=== PATIENT | male | born 1980 | race Caucasian/White ===

== ENCOUNTER 2017-01-16 02:52 | Emergency (ER) | payer MEDICARE, MEDICAID ==
[~2017-01-16] VITALS: Ht 175.3 cm; Wt 59.0 kg
[~2017-01-16 02:52] MED LIST: ALPR0.5T PO; FENT100D2 TD; HYDR2TAB27 PO; METO25TA62 PO; PAR20T PO; RILU50TA2 PO
[2017-01-16] MEDS ORDERED: ALBUTEROL SULF 2.5 MG/0.5ML(0.5%) NEB SOLN NEB ONE (03:00)
[2017-01-16] MEDS ORDERED: IPRATROPIUM BROM 0.5 MG/2.5ML INH SOL NEB ONE (03:00)
[2017-01-16] MEDS ORDERED: methylPREDNISolone SOD SUCC 125 MG/2 ML VL IV ONE (03:00)
[2017-01-16 03:28] LABS: Basophils # (auto) 0.1 uL; Basophils % (auto) 0.9 % (0.0-2.0); DEFINITIVE VIEW TRANSMISSION; Eosinophils # (auto) 0.2 uL; Eosinophils % (auto) 2.5 % (0.0-7.0); Hematocrit 37.4 % (41.0-53.0); Lymphocytes # (auto) 1.5 uL; Lymphocytes % (auto) 14.6 % (10.0-50.0); Mean Corpuscular Hemoglobin 26.9 pg (28.0-32.0); Mean Corpuscular Hgb Conc. 32.1 g/dL (32.0-36.0); Mean Corpuscular Volume 83.6 fL (80.0-100.0); Mean Platelet Volume 9.2 fL (7.4-10.4); Monocytes # (auto) 0.7 uL; Monocytes % (auto) 7.3 % (0.0-12.0); Neutrophils # (auto) 7.5 uL; Neutrophils % (auto) 74.7 % (37.0-80.0); Platelet Count (auto) 396 10^3/uL (140-450); White Blood Cell 10.1 10^3/uL (4.4-10.8)
[2017-01-16 03:47] LABS: Albumin 3.2 g/dL (3.4-5.0); Anion Gap 9 (5-15); Aspartate Aminotransferase 16 U/L (15-37); BUN/Creatinine Ratio 59.3; Blood Urea Nitrogen 16 mg/dL (7-18); Calcium 8.7 mg/dL (8.5-10.1); Carbon Dioxide 28 mmol/L (21-32); Chloride 103 mmol/L (98-107); GFR African American 487 mL/min; GFR Non-African American 403 mL/min; Glucose 102 mg/dL (74-106); Magnesium 2.1 mg/dL (1.6-2.6); Sodium 140 mmol/L (136-145)
[2017-01-16 03:52] LABS: Alkaline Phosphatase 88 U/L (45-117); Bilirubin, Total 0.4 mg/dL (0.2-1.0); Total Protein 7.6 g/dL (6.4-8.2)
[2017-01-16 04:48] LABS: B-Type Natriuretic Peptide 5.48 pg/mL (0-100)
[2017-01-16 05:05] LABS: Temperature: 22.2 C (20.0-25.0)
[2017-01-16] MEDS ORDERED: PIPERACILLIN-TAZOB 3.375GM 100 ML IV ONE (06:15)
[2017-01-16 06:52] VITALS: BP 106/61
[2017-01-16] MEDS ORDERED: HYDROmorphone HCL 2 MG/ML VL IV ONE (07:45)
[2017-01-16] MEDS ORDERED: HYDROmorphone HCL 2 MG/ML VL ONE (07:50)
== END 2017-01-16 08:59 | disposition home or self-care (01) ==
LOC: ER 02:52
DX: J96.00 Acute respiratory failure, unspecified whether with hypoxia or hypercapnia (principal)
CPT/HCPCS: 36415; 36600; 71010; 80053; 82805; 83605; 83735; 83880; 84484; 85025; 87040; 87070; 87077; 87186; 87205; 93005; 94640; 96365; 96375; 99285; J1170; J2543; J2930; 94002; 94003

== ENCOUNTER 2017-01-20 22:37 | Inpatient (IN) | payer MEDICARE, MEDICAID ==
[~2017-01-20] VITALS: Ht 165.1 cm; Wt 97.5 kg
[~2017-01-20 22:37] MED LIST changes: +ALBUTEROL SULF 2.5 MG/0.5ML(0.5%) NEB SOLN ONE
[2017-01-20] MEDS ORDERED: methylPREDNISolone SOD SUCC 125 MG/2 ML VL IV ONE (22:45)
[2017-01-20] MEDS ORDERED: SODIUM CHLORIDE 0.9% 1,000 ML IV ONE (22:45)
[2017-01-20] MEDS ORDERED: PIPERACILLIN-TAZOB 3.375GM 100 ML IV ONE (22:45)
[2017-01-20] MEDS ORDERED: ALBUTEROL SULF 2.5 MG/0.5ML(0.5%) NEB SOLN NEB ONE (22:45)
[2017-01-20] MEDS ORDERED: ACETYLCYSTEINE 10 %(100MG/ML) SOL 4ML NEB ONE (22:45)
[2017-01-20] MEDS ORDERED: IPRATROPIUM BROM 0.5 MG/2.5ML INH SOL NEB ONE (22:45)
[2017-01-20] MEDS ORDERED: LEVOFLOXACIN 500MG 100 ML IV ONE (22:45)
[2017-01-20] MEDS ORDERED: ALPRAZolam 0.5 MG TAB PO ONE (23:45)
[2017-01-21] VITALS (16 sets, daily range): BP systolic 111–148; BP diastolic 17–95
[2017-01-21 00:15] LABS: B-Type Natriuretic Peptide 13.25 pg/mL (0-100)
[2017-01-21 00:16] LABS: DEFINITIVE VIEW TRANSMISSION; Hematocrit 40.8 % (41.0-53.0); Mean Corpuscular Hemoglobin 26.5 pg (28.0-32.0); Mean Corpuscular Hgb Conc. 31.9 g/dL (32.0-36.0); Mean Corpuscular Volume 83.2 fL (80.0-100.0); Mean Platelet Volume 10.2 fL (7.4-10.4); Platelet Count (auto) 416 10^3/uL (140-450); SUSPECT VIEW TRANSMISSION
[2017-01-21 00:18] LABS: White Blood Cell 35.5 10^3/uL (4.4-10.8)
[2017-01-21 00:20] LABS: Metamyelocytes % 0; Myelocytes % 0; Promyelocytes % 0; Reactive Lymphocytes 0; Temperature: 23.8 C (20.0-25.0)
[2017-01-21] MEDS ORDERED: SODIUM CHLORIDE 0.9% 1,000 ML IV ONE (00:30)
[2017-01-21 03:12] LABS: BUN/Creatinine Ratio 45.5; Bilirubin, Total 0.8 mg/dL (0.2-1.0); Calcium 9.1 mg/dL (8.5-10.1); Magnesium 1.9 mg/dL (1.6-2.6); Potassium 3.2 mmol/L (3.5-5.1); Total Protein 7.9 g/dL (6.4-8.2)
[2017-01-21 04:00] LABS: Hypersegmented Neutrophils Present
[2017-01-21 04:01] LABS: Platelet Estimate Adequate; RBC Morphology Normal
[2017-01-21 04:02] LABS: Urine Bilirubin Negative (Negative); Urine Blood Negative /uL (Negative); Urine Color Yellow (Yellow); Urine Glucose Normal (Normal); Urine Nitrite Negative (Negative); Urine RBC 4 /hpf (0 - 3); Urine Squamous Epithelial Cell FEW /hpf (<5); Urine Urobilinogen Normal (Negative)
[2017-01-21 04:04] LABS: Urine Ketone 4+ (Negative)
[2017-01-21] MEDS: ALBUTEROL SULF 2.5 MG/0.5ML(0.5%) NEB SOLN NEB SCH ×3 (05:40→18:15)
[2017-01-21] MEDS: IPRATROPIUM BROM 0.5 MG/2.5ML INH SOL NEB SCH ×3 (05:40→18:15)
[2017-01-21] MEDS: ACETYLCYSTEINE 20%(200MG/ML) SOL 4ML NEB SCH ×3 (05:40→18:16)
[2017-01-21] MEDS ORDERED: ACETAMINOPHEN 325 MG TAB PO PRN (05:45)
[2017-01-21] MEDS ORDERED: ONDANSETRON HCL 4 MG/2 ML VIAL IV PRN (05:45)
[2017-01-21] MEDS ORDERED: VANCOMYCIN PER PHARMACY 0 MG IV SCH (05:45)
[2017-01-21] MEDS ORDERED: MORPHINE SULF INJ 2 MG/ML SYRINGE 1ML IV PRN (05:45)
[2017-01-21] MEDS ORDERED: NITROGLYCERIN 0.4 MG SL TAB SL PRN (05:45)
[2017-01-21] MEDS ORDERED: VANCOMYCIN 1GM/250ML D5W 250 ML IV ONE (06:00)
[2017-01-21] MEDS ORDERED: PIPERACILLIN-TAZOB 3.375GM 100 ML IV SCH (06:00)
[2017-01-21] MEDS: POTASSIUM CHL 20MEQ/100ML 100 ML IV SCH ×2 (06:12→07:46)
[2017-01-21] MEDS: SODIUM CHLORIDE 0.9% 1,000 ML IV SCH ×2 (06:12→19:34)
[2017-01-21] MEDS: VANCOMYCIN 750 MG in D5W 5% 250 ML IV SCH ×2 (09:41→21:21)
[2017-01-21] MEDS ORDERED: methylPREDNISolone SOD SUCC 125 MG/2 ML VL IV SCH ×2 (10:00→22:00)
[2017-01-21] MEDS: PANTOPRAZOLE SODIUM 40 MG/10 ML VIAL IV SCH (10:20)
[2017-01-21] MEDS: ENOXAPARIN SOD 40 MG/0.4 ML SYRINGE SC SCH (10:21)
[2017-01-21] MEDS: MEROPENEM 1GM IVPB 100 ML IV SCH ×2 (14:45→22:00)
[2017-01-21] MEDS: MORPHINE SULF INJ 2 MG/ML SYRINGE 1ML IV PRN (21:20)
[2017-01-21] MEDS: methylPREDNISolone SOD SUCC 40 MG/ML VL IV SCH (21:21)
[2017-01-22] VITALS (9 sets, daily range): BP systolic 115–130; BP diastolic 73–85
[2017-01-22] MEDS: IPRATROPIUM BROM 0.5 MG/2.5ML INH SOL NEB SCH ×5 (02:10→23:36)
[2017-01-22] MEDS: ACETYLCYSTEINE 20%(200MG/ML) SOL 4ML NEB SCH ×5 (02:10→23:36)
[2017-01-22] MEDS: ALBUTEROL SULF 2.5 MG/0.5ML(0.5%) NEB SOLN NEB SCH ×5 (02:10→23:36)
[2017-01-22] MEDS: MEROPENEM 1GM IVPB 100 ML IV SCH ×3 (05:21→21:52)
[2017-01-22 06:43] LABS: DEFINITIVE VIEW TRANSMISSION; Hematocrit 33.3 % (41.0-53.0); Hemoglobin 10.8 g/dL (13.5-17.5); Mean Corpuscular Hemoglobin 26.8 pg (28.0-32.0); Mean Corpuscular Hgb Conc. 32.5 g/dL (32.0-36.0); Mean Corpuscular Volume 82.5 fL (80.0-100.0); Mean Platelet Volume 9.7 fL (7.4-10.4); Platelet Count (auto) 322 10^3/uL (140-450); Red Cell Distribution Width 15.6 % (11.6-16.0); SUSPECT VIEW TRANSMISSION; White Blood Cell 29.9 10^3/uL (4.4-10.8)
[2017-01-22 06:44] LABS: Albumin 2.6 g/dL (3.4-5.0); BUN/Creatinine Ratio 54.5; Calcium 9.2 mg/dL (8.5-10.1); Metamyelocytes % 0; Potassium 3.3 mmol/L (3.5-5.1); Promyelocytes % 0; Reactive Lymphocytes 0
[2017-01-22 06:46] LABS: Bilirubin, Total 0.3 mg/dL (0.2-1.0); Total Protein 6.7 g/dL (6.4-8.2)
[2017-01-22 06:50] LABS: Hypersegmented Neutrophils Present; Myelocytes % 1; Platelet Estimate Adequate
[2017-01-22 06:51] LABS: Anisocytosis Slight
[2017-01-22] MEDS: methylPREDNISolone SOD SUCC 40 MG/ML VL IV SCH ×2 (09:28→21:51)
[2017-01-22] MEDS: PANTOPRAZOLE SODIUM 40 MG/10 ML VIAL IV SCH (09:28)
[2017-01-22] MEDS: SODIUM CHLORIDE 0.9% 1,000 ML IV SCH ×2 (09:28→21:45)
[2017-01-22] MEDS: ENOXAPARIN SOD 40 MG/0.4 ML SYRINGE SC SCH (09:29)
[2017-01-22] MEDS: VANCOMYCIN 750 MG in D5W 5% 250 ML IV SCH ×2 (09:35→18:19)
[2017-01-22] MEDS ORDERED: POTASSIUM CHL 20 Meq TABLET PO ONE (14:30)
[2017-01-22] MEDS: MORPHINE SULF INJ 2 MG/ML SYRINGE 1ML IV PRN ×2 (14:38→20:03)
[2017-01-22] MEDS: RILUZOLE 50 MG TABLET PO SCH (21:51)
[2017-01-23] VITALS (11 sets, daily range): BP systolic 128–141; BP diastolic 55–88
[2017-01-23] MEDS: VANCOMYCIN 750 MG in D5W 5% 250 ML IV SCH ×3 (01:37→18:15)
[2017-01-23 04:36] LABS: DEFINITIVE VIEW TRANSMISSION; Hematocrit 33.9 % (41.0-53.0); Hemoglobin 11.1 g/dL (13.5-17.5); Mean Corpuscular Hemoglobin 26.9 pg (28.0-32.0); Mean Corpuscular Hgb Conc. 32.8 g/dL (32.0-36.0); Mean Platelet Volume 9.7 fL (7.4-10.4); Platelet Count (auto) 298 10^3/uL (140-450); Red Cell Distribution Width 15.5 % (11.6-16.0); SUSPECT VIEW TRANSMISSION; White Blood Cell 26.7 10^3/uL (4.4-10.8)
[2017-01-23 04:38] LABS: Metamyelocytes % 0; Myelocytes % 0; Promyelocytes % 0; Reactive Lymphocytes 0
[2017-01-23 04:56] LABS: BUN/Creatinine Ratio 82.6; Calcium 8.9 mg/dL (8.5-10.1); Potassium 4.2 mmol/L (3.5-5.1)
[2017-01-23 05:13] LABS: Hypersegmented Neutrophils Present; Platelet Estimate Adequate
[2017-01-23 05:14] LABS: Anisocytosis Slight
[2017-01-23] MEDS: MEROPENEM 1GM IVPB 100 ML IV SCH ×3 (05:36→22:00)
[2017-01-23] MEDS: ALBUTEROL SULF 2.5 MG/0.5ML(0.5%) NEB SOLN NEB SCH ×3 (06:01→20:56)
[2017-01-23] MEDS: IPRATROPIUM BROM 0.5 MG/2.5ML INH SOL NEB SCH ×3 (06:01→20:57)
[2017-01-23] MEDS: ACETYLCYSTEINE 20%(200MG/ML) SOL 4ML NEB SCH ×3 (06:02→20:57)
[2017-01-23] MEDS: methylPREDNISolone SOD SUCC 40 MG/ML VL IV SCH (09:51)
[2017-01-23] MEDS: ENOXAPARIN SOD 40 MG/0.4 ML SYRINGE SC SCH (09:51)
[2017-01-23] MEDS: PANTOPRAZOLE SODIUM 40 MG/10 ML VIAL IV SCH (09:51)
[2017-01-23] MEDS: SODIUM CHLORIDE 0.9% 1,000 ML IV SCH (09:52)
[2017-01-23] MEDS: RILUZOLE 50 MG TABLET PO SCH (10:00)
[2017-01-23] MEDS ORDERED: fentaNYL 100MCG/HR 100 MCG/HR PAT TD SCH (10:00)
[2017-01-23] MEDS: PARoxetine 20 MG TAB PO SCH (10:01)
[2017-01-23] MEDS: MORPHINE SULF INJ 2 MG/ML SYRINGE 1ML IV PRN ×3 (11:08→23:30)
[2017-01-23] MEDS ORDERED: DULoxetine HCL 30 MG CAP PO ONE (11:15)
[2017-01-23] MEDS ORDERED: LACTULOSE 20Gm/30ML SOLN PO ONE (11:15)
[2017-01-23] MEDS ORDERED: BISACODYL 5 MG EC TAB PO ONE (11:45)
[2017-01-23] MEDS ORDERED: DOCUSATE SOD 100 MG CAP PO ONE (12:00)
[2017-01-23] MEDS: RILUZOLE 50 MG TAB PO SCH (22:00)
[2017-01-23] MEDS ORDERED: TESTOSTERONE CYPIONATE 200 MG/ML 1ML VIAL IM ONE (22:45)
[2017-01-24] VITALS (9 sets, daily range): BP systolic 115–158; BP diastolic 60–89
[2017-01-24] MEDS: SODIUM CHLORIDE 0.9% 1,000 ML IV SCH ×2 (00:25→13:45)
[2017-01-24] MEDS: IPRATROPIUM BROM 0.5 MG/2.5ML INH SOL NEB SCH ×4 (01:51→18:25)
[2017-01-24] MEDS: ACETYLCYSTEINE 20%(200MG/ML) SOL 4ML NEB SCH ×8 (01:51→18:25)
[2017-01-24] MEDS: ALBUTEROL SULF 2.5 MG/0.5ML(0.5%) NEB SOLN NEB SCH ×4 (01:51→18:25)
[2017-01-24] MEDS: VANCOMYCIN 1GM/250ML D5W 250 ML IV SCH ×3 (02:30→18:23)
[2017-01-24] MEDS: MORPHINE SULF INJ 2 MG/ML SYRINGE 1ML IV PRN ×4 (05:27→19:37)
[2017-01-24] MEDS: MEROPENEM 1GM IVPB 100 ML IV SCH ×3 (06:16→22:03)
[2017-01-24 06:24] LABS: Basophils # (auto) 0 uL; DEFINITIVE VIEW TRANSMISSION; Eosinophils # (auto) 0 uL; Hematocrit 34.2 % (41.0-53.0); Hemoglobin 11.1 g/dL (13.5-17.5); Lymphocytes # (auto) 0.9 uL; Lymphocytes % (auto) 5.4 % (10.0-50.0); Mean Corpuscular Hemoglobin 26.6 pg (28.0-32.0); Mean Corpuscular Hgb Conc. 32.3 g/dL (32.0-36.0); Mean Corpuscular Volume 82.5 fL (80.0-100.0); Mean Platelet Volume 10.4 fL (7.4-10.4); Monocytes # (auto) 0.6 uL; Monocytes % (auto) 3.9 % (0.0-12.0); Neutrophils # (auto) 15.3 uL; Neutrophils % (auto) 90.7 % (37.0-80.0); Platelet Count (auto) 288 10^3/uL (140-450); Red Cell Distribution Width 15.6 % (11.6-16.0); White Blood Cell 16.8 10^3/uL (4.4-10.8)
[2017-01-24 06:41] LABS: Albumin 2.7 g/dL (3.4-5.0); Calcium 8.9 mg/dL (8.5-10.1); Potassium 4.3 mmol/L (3.5-5.1)
[2017-01-24 06:46] LABS: Bilirubin, Total 0.4 mg/dL (0.2-1.0); Total Protein 6.1 g/dL (6.4-8.2)
[2017-01-24] MEDS: PARoxetine 20 MG TAB PO SCH (09:56)
[2017-01-24] MEDS: PANTOPRAZOLE SODIUM 40 MG/10 ML VIAL IV SCH (09:56)
[2017-01-24] MEDS: RILUZOLE 50 MG TAB PO SCH ×2 (09:56→22:03)
[2017-01-24] MEDS: ENOXAPARIN SOD 40 MG/0.4 ML SYRINGE SC SCH (09:56)
[2017-01-24] MEDS: FLUCONAZOLE 100MG/50ML 50 ML IV SCH (14:18)
[2017-01-25] VITALS (7 sets, daily range): BP systolic 97–137; BP diastolic 59–78
[2017-01-25] MEDS: MORPHINE SULF INJ 2 MG/ML SYRINGE 1ML IV PRN ×3 (00:04→19:44)
[2017-01-25] MEDS: IPRATROPIUM BROM 0.5 MG/2.5ML INH SOL NEB SCH ×4 (00:14→18:22)
[2017-01-25] MEDS: ACETYLCYSTEINE 20%(200MG/ML) SOL 4ML NEB SCH ×7 (00:14→20:42)
[2017-01-25] MEDS: ALBUTEROL SULF 2.5 MG/0.5ML(0.5%) NEB SOLN NEB SCH ×4 (00:14→18:22)
[2017-01-25] MEDS: VANCOMYCIN 1GM/250ML D5W 250 ML IV SCH ×3 (01:47→20:00)
[2017-01-25] MEDS: SODIUM CHLORIDE 0.9% 1,000 ML IV SCH ×2 (04:00→16:25)
[2017-01-25] MEDS: MEROPENEM 1GM IVPB 100 ML IV SCH ×3 (05:41→22:00)
[2017-01-25 06:17] LABS: Basophils # (auto) 0 uL; Basophils % (auto) 0.2 % (0.0-2.0); DEFINITIVE VIEW TRANSMISSION; Eosinophils # (auto) 0.1 uL; Eosinophils % (auto) 1.1 % (0.0-7.0); Hematocrit 34.6 % (41.0-53.0); Hemoglobin 11.3 g/dL (13.5-17.5); Lymphocytes # (auto) 2.3 uL; Lymphocytes % (auto) 20.5 % (10.0-50.0); Mean Corpuscular Hemoglobin 26.7 pg (28.0-32.0); Mean Corpuscular Hgb Conc. 32.5 g/dL (32.0-36.0); Mean Platelet Volume 9.7 fL (7.4-10.4); Monocytes # (auto) 0.9 uL; Monocytes % (auto) 7.8 % (0.0-12.0); Neutrophils # (auto) 7.9 uL; Neutrophils % (auto) 70.4 % (37.0-80.0); Platelet Count (auto) 303 10^3/uL (140-450); Red Cell Distribution Width 15.6 % (11.6-16.0); White Blood Cell 11.2 10^3/uL (4.4-10.8)
[2017-01-25 06:42] LABS: Calcium 8.5 mg/dL (8.5-10.1); Potassium 3.8 mmol/L (3.5-5.1)
[2017-01-25] MEDS: PARoxetine 20 MG TAB PO SCH (10:00)
[2017-01-25] MEDS: PANTOPRAZOLE SODIUM 40 MG/10 ML VIAL IV SCH (10:00)
[2017-01-25] MEDS: RILUZOLE 50 MG TAB PO SCH ×2 (10:00→22:00)
[2017-01-25] MEDS: ENOXAPARIN SOD 40 MG/0.4 ML SYRINGE SC SCH (10:00)
[2017-01-25] MEDS: FLUCONAZOLE 100MG/50ML 50 ML IV SCH (10:00)
[2017-01-26] VITALS: BP 132/73
[2017-01-26] MEDS: ALBUTEROL SULF 2.5 MG/0.5ML(0.5%) NEB SOLN NEB SCH ×4 (00:32→18:25)
[2017-01-26] MEDS: IPRATROPIUM BROM 0.5 MG/2.5ML INH SOL NEB SCH ×4 (00:32→18:25)
[2017-01-26 04:00] VITALS: BP 117/74
[2017-01-26] MEDS: VANCOMYCIN 1GM/250ML D5W 250 ML IV SCH ×3 (04:00→19:56)
[2017-01-26] MEDS: MORPHINE SULF INJ 2 MG/ML SYRINGE 1ML IV PRN ×5 (05:01→22:33)
[2017-01-26] MEDS: SODIUM CHLORIDE 0.9% 1,000 ML IV SCH ×2 (05:45→19:55)
[2017-01-26] MEDS: ACETYLCYSTEINE 20%(200MG/ML) SOL 4ML NEB SCH ×4 (06:15→18:25)
[2017-01-26] MEDS: MEROPENEM 1GM IVPB 100 ML IV SCH ×3 (06:30→21:31)
[2017-01-26 08:00] VITALS: BP 118/69
[2017-01-26] MEDS: PANTOPRAZOLE SODIUM 40 MG/10 ML VIAL IV SCH (09:59)
[2017-01-26] MEDS: ENOXAPARIN SOD 40 MG/0.4 ML SYRINGE SC SCH (10:00)
[2017-01-26] MEDS: PARoxetine 20 MG TAB PO SCH (10:00)
[2017-01-26] MEDS ORDERED: TERBUTALINE SULFATE 5 MG TAB PO ONE (10:00)
[2017-01-26] MEDS: FLUCONAZOLE 100MG/50ML 50 ML IV SCH (10:19)
[2017-01-26] MEDS: RILUZOLE 50 MG TAB PO SCH ×2 (10:19→21:32)
[2017-01-26 12:00] VITALS: BP 125/80
[2017-01-26 15:34] LABS: Basophils # (auto) 0 uL; Basophils % (auto) 0.2 % (0.0-2.0); DEFINITIVE VIEW TRANSMISSION; Eosinophils # (auto) 0.3 uL; Eosinophils % (auto) 1.8 % (0.0-7.0); Hematocrit 40.3 % (41.0-53.0); Hemoglobin 13.3 g/dL (13.5-17.5); Lymphocytes # (auto) 2.3 uL; Lymphocytes % (auto) 13.3 % (10.0-50.0); Mean Corpuscular Hemoglobin 26.9 pg (28.0-32.0); Mean Corpuscular Hgb Conc. 32.9 g/dL (32.0-36.0); Mean Corpuscular Volume 81.6 fL (80.0-100.0); Mean Platelet Volume 9.7 fL (7.4-10.4); Monocytes # (auto) 1.1 uL; Monocytes % (auto) 6.1 % (0.0-12.0); Neutrophils # (auto) 13.6 uL; Neutrophils % (auto) 78.6 % (37.0-80.0); Platelet Count (auto) 298 10^3/uL (140-450); Red Cell Distribution Width 15.5 % (11.6-16.0); White Blood Cell 17.3 10^3/uL (4.4-10.8)
[2017-01-26 16:00] VITALS: BP 153/65
[2017-01-26 20:00] VITALS: BP 113/65
[2017-01-26] MEDS: TERBUTALINE SULFATE 5 MG TAB PO SCH (21:32)
[2017-01-27] VITALS: BP 104/62
[2017-01-27] MEDS: ALBUTEROL SULF 2.5 MG/0.5ML(0.5%) NEB SOLN NEB SCH ×4 (00:34→18:15)
[2017-01-27] MEDS: IPRATROPIUM BROM 0.5 MG/2.5ML INH SOL NEB SCH ×4 (00:34→18:15)
[2017-01-27] MEDS: ACETYLCYSTEINE 20%(200MG/ML) SOL 4ML NEB SCH ×4 (00:34→18:15)
[2017-01-27 04:00] VITALS: BP 126/71
[2017-01-27] MEDS: VANCOMYCIN 1GM/250ML D5W 250 ML IV SCH ×3 (04:12→20:17)
[2017-01-27 04:48] LABS: Basophils # (auto) 0 uL; Basophils % (auto) 0.2 % (0.0-2.0); DEFINITIVE VIEW TRANSMISSION; Eosinophils # (auto) 0.3 uL; Eosinophils % (auto) 2.1 % (0.0-7.0); Hematocrit 35.1 % (41.0-53.0); Hemoglobin 11.3 g/dL (13.5-17.5); Lymphocytes # (auto) 1.9 uL; Lymphocytes % (auto) 13.5 % (10.0-50.0); Mean Corpuscular Hemoglobin 26.6 pg (28.0-32.0); Mean Corpuscular Hgb Conc. 32.3 g/dL (32.0-36.0); Mean Corpuscular Volume 82.3 fL (80.0-100.0); Mean Platelet Volume 9.1 fL (7.4-10.4); Monocytes # (auto) 0.8 uL; Monocytes % (auto) 5.8 % (0.0-12.0); Neutrophils % (auto) 78.4 % (37.0-80.0); Platelet Count (auto) 291 10^3/uL (140-450); Red Cell Distribution Width 15.6 % (11.6-16.0); White Blood Cell 14.1 10^3/uL (4.4-10.8)
[2017-01-27] MEDS: MORPHINE SULF INJ 2 MG/ML SYRINGE 1ML IV PRN ×3 (05:01→21:29)
[2017-01-27 05:07] LABS: Calcium 8.3 mg/dL (8.5-10.1); Potassium 3.9 mmol/L (3.5-5.1)
[2017-01-27] MEDS: MEROPENEM 1GM IVPB 100 ML IV SCH ×3 (05:56→21:30)
[2017-01-27 07:59] VITALS: BP 120/76
[2017-01-27] MEDS: SODIUM CHLORIDE 0.9% 1,000 ML IV SCH (08:25)
[2017-01-27] MEDS: ENOXAPARIN SOD 40 MG/0.4 ML SYRINGE SC SCH (10:39)
[2017-01-27] MEDS: FLUCONAZOLE 100MG/50ML 50 ML IV SCH (10:40)
[2017-01-27] MEDS: PARoxetine 20 MG TAB PO SCH (10:41)
[2017-01-27] MEDS: PANTOPRAZOLE SODIUM 40 MG/10 ML VIAL IV SCH (10:41)
[2017-01-27] MEDS: TERBUTALINE SULFATE 5 MG TAB PO SCH (10:41)
[2017-01-27] MEDS: RILUZOLE 50 MG TAB PO SCH ×2 (10:42→21:30)
[2017-01-27 11:53] VITALS: BP 132/74
[2017-01-27 16:00] VITALS: BP 118/64
[2017-01-27] MEDS: fentaNYL 100MCG/HR 100 MCG/HR PAT TD SCH (18:15)
[2017-01-27 20:00] VITALS: BP 108/67
[2017-01-28] VITALS (8 sets, daily range): BP systolic 105–135; BP diastolic 56–73
[2017-01-28] MEDS: ALBUTEROL SULF 2.5 MG/0.5ML(0.5%) NEB SOLN NEB SCH ×4 (00:09→18:06)
[2017-01-28] MEDS: ACETYLCYSTEINE 20%(200MG/ML) SOL 4ML NEB SCH ×4 (00:09→18:06)
[2017-01-28] MEDS: IPRATROPIUM BROM 0.5 MG/2.5ML INH SOL NEB SCH ×4 (00:09→18:06)
[2017-01-28] MEDS: SODIUM CHLORIDE 0.9% 1,000 ML IV SCH ×2 (03:24→11:05)
[2017-01-28] MEDS: MORPHINE SULF INJ 2 MG/ML SYRINGE 1ML IV PRN ×4 (04:27→20:17)
[2017-01-28] MEDS: VANCOMYCIN 1GM/250ML D5W 250 ML IV SCH ×3 (04:27→19:44)
[2017-01-28] MEDS: MEROPENEM 1GM IVPB 100 ML IV SCH ×3 (05:54→22:16)
[2017-01-28] MEDS: FLUCONAZOLE 100MG/50ML 50 ML IV SCH (09:42)
[2017-01-28] MEDS: TERBUTALINE SULFATE 5 MG TAB PO SCH (09:42)
[2017-01-28] MEDS: RILUZOLE 50 MG TAB PO SCH ×2 (09:42→22:16)
[2017-01-28] MEDS: PARoxetine 20 MG TAB PO SCH (09:42)
[2017-01-28] MEDS: PANTOPRAZOLE SODIUM 40 MG/10 ML VIAL IV SCH (09:42)
[2017-01-28] MEDS: ENOXAPARIN SOD 40 MG/0.4 ML SYRINGE SC SCH (09:43)
[2017-01-29] VITALS (8 sets, daily range): BP systolic 107–141; BP diastolic 52–85
[2017-01-29] MEDS: IPRATROPIUM BROM 0.5 MG/2.5ML INH SOL NEB SCH ×4 (00:15→18:34)
[2017-01-29] MEDS: ALBUTEROL SULF 2.5 MG/0.5ML(0.5%) NEB SOLN NEB SCH ×4 (00:15→18:34)
[2017-01-29] MEDS: ACETYLCYSTEINE 20%(200MG/ML) SOL 4ML NEB SCH ×4 (00:15→18:34)
[2017-01-29] MEDS: SODIUM CHLORIDE 0.9% 1,000 ML IV SCH ×2 (00:25→13:44)
[2017-01-29] MEDS: MORPHINE SULF INJ 2 MG/ML SYRINGE 1ML IV PRN ×4 (01:17→20:42)
[2017-01-29] MEDS: VANCOMYCIN 1GM/250ML D5W 250 ML IV SCH ×3 (03:33→20:04)
[2017-01-29] MEDS: MEROPENEM 1GM IVPB 100 ML IV SCH ×3 (06:00→22:07)
[2017-01-29] MEDS: PARoxetine 20 MG TAB PO SCH (09:33)
[2017-01-29] MEDS: PANTOPRAZOLE SODIUM 40 MG/10 ML VIAL IV SCH (09:33)
[2017-01-29] MEDS: TERBUTALINE SULFATE 5 MG TAB PO SCH (09:33)
[2017-01-29] MEDS: ENOXAPARIN SOD 40 MG/0.4 ML SYRINGE SC SCH (09:33)
[2017-01-29] MEDS: FLUCONAZOLE 100MG/50ML 50 ML IV SCH (09:33)
[2017-01-29] MEDS: RILUZOLE 50 MG TAB PO SCH ×2 (09:34→22:09)
[2017-01-29 17:08] LABS: Allen Test Yes; Base Excess 9.3 mmol/L (-2.0-2.0); Blood 02Sat 98.1 % (96-100); Blood COHb 0.7 % (0.5-1.5); Blood MetHb 0.1 % (0.0-1.5); HCO3 34.3 mmol/L (22-26.0); HHb 1.9 % (0.0-5.0); MODE VENT - CPAP; O2Hb 97.3 % (94.0-97.0); PCO2 48.9 mmHg (35.0-45.0); PCO2(T) 48.9 mmHg (35.0-45.0); PO2 123.7 mmHg (80.0-100.0); Pressure Support 8; Room 0266D; Sample Type Arterial; pH 7.464 (7.350-7.450)
[2017-01-29] MEDS: ALPRAZolam 0.5 MG TAB PO PRN (23:27)
[2017-01-30] MEDS: ACETYLCYSTEINE 20%(200MG/ML) SOL 4ML NEB SCH ×4 (00:22→19:14)
[2017-01-30] MEDS: ALBUTEROL SULF 2.5 MG/0.5ML(0.5%) NEB SOLN NEB SCH ×4 (00:22→19:14)
[2017-01-30] MEDS: IPRATROPIUM BROM 0.5 MG/2.5ML INH SOL NEB SCH ×4 (00:22→19:14)
[2017-01-30] MEDS: SODIUM CHLORIDE 0.9% 1,000 ML IV SCH ×2 (03:06→16:25)
[2017-01-30 04:00] VITALS: BP 105/61
[2017-01-30] MEDS: VANCOMYCIN 1GM/250ML D5W 250 ML IV SCH ×2 (04:21→16:00)
[2017-01-30] MEDS: MEROPENEM 1GM IVPB 100 ML IV SCH ×3 (05:41→22:42)
[2017-01-30 05:51] LABS: Basophils # (auto) 0 uL; Basophils % (auto) 0.2 % (0.0-2.0); DEFINITIVE VIEW TRANSMISSION; Eosinophils # (auto) 0.3 uL; Eosinophils % (auto) 2.6 % (0.0-7.0); Hemoglobin 10.6 g/dL (13.5-17.5); Lymphocytes # (auto) 1.1 uL; Lymphocytes % (auto) 9.6 % (10.0-50.0); Mean Corpuscular Hemoglobin 26.5 pg (28.0-32.0); Mean Corpuscular Volume 82.8 fL (80.0-100.0); Mean Platelet Volume 10.2 fL (7.4-10.4); Monocytes # (auto) 1.1 uL; Neutrophils # (auto) 8.5 uL; Neutrophils % (auto) 77.6 % (37.0-80.0); Platelet Count (auto) 272 10^3/uL (140-450); White Blood Cell 10.9 10^3/uL (4.4-10.8)
[2017-01-30 06:15] LABS: Anion Gap 6 (5-15); BUN/Creatinine Ratio 46.7; Blood Urea Nitrogen 7 mg/dL (7-18); Calcium 8.6 mg/dL (8.5-10.1); Carbon Dioxide 34 mmol/L (21-32); Chloride 99 mmol/L (98-107); GFR African American 960 mL/min; GFR Non-African American 794 mL/min; Glucose 108 mg/dL (74-106); Potassium 3.9 mmol/L (3.5-5.1); Sodium 139 mmol/L (136-145)
[2017-01-30 08:00] VITALS: BP 122/62
[2017-01-30] MEDS: ALPRAZolam 0.5 MG TAB PO PRN (10:00)
[2017-01-30] MEDS: PARoxetine 20 MG TAB PO SCH (10:00)
[2017-01-30] MEDS: PANTOPRAZOLE SODIUM 40 MG/10 ML VIAL IV SCH (10:00)
[2017-01-30] MEDS: ENOXAPARIN SOD 40 MG/0.4 ML SYRINGE SC SCH (10:01)
[2017-01-30] MEDS: TERBUTALINE SULFATE 5 MG TAB PO SCH (10:01)
[2017-01-30] MEDS: FLUCONAZOLE 100MG/50ML 50 ML IV SCH (10:01)
[2017-01-30] MEDS: MORPHINE SULF INJ 2 MG/ML SYRINGE 1ML IV PRN ×2 (10:02→21:46)
[2017-01-30] MEDS: RILUZOLE 50 MG TAB PO SCH ×2 (10:02→21:25)
[2017-01-30 12:00] VITALS: BP 118/65
[2017-01-30 13:39] VITALS: BP 122/62
[2017-01-30 16:00] VITALS: BP 114/71
[2017-01-30 20:00] VITALS: BP 121/80
[2017-01-31] VITALS (13 sets, daily range): BP systolic 103–122; BP diastolic 62–71
[2017-01-31] MEDS: IPRATROPIUM BROM 0.5 MG/2.5ML INH SOL NEB SCH ×4 (01:12→18:07)
[2017-01-31] MEDS: ALBUTEROL SULF 2.5 MG/0.5ML(0.5%) NEB SOLN NEB SCH ×4 (01:12→18:07)
[2017-01-31] MEDS: ACETYLCYSTEINE 20%(200MG/ML) SOL 4ML NEB SCH ×4 (01:13→18:07)
[2017-01-31] MEDS: VANCOMYCIN 1GM/250ML D5W 250 ML IV SCH ×2 (03:47→16:45)
[2017-01-31] MEDS: SODIUM CHLORIDE 0.9% 1,000 ML IV SCH ×2 (05:45→19:05)
[2017-01-31] MEDS: MEROPENEM 1GM IVPB 100 ML IV SCH ×3 (05:54→21:10)
[2017-01-31] MEDS: MORPHINE SULF INJ 2 MG/ML SYRINGE 1ML IV PRN ×3 (06:15→21:18)
[2017-01-31] MEDS: PANTOPRAZOLE SODIUM 40 MG/10 ML VIAL IV SCH (10:25)
[2017-01-31] MEDS: PARoxetine 20 MG TAB PO SCH (10:26)
[2017-01-31] MEDS: TERBUTALINE SULFATE 5 MG TAB PO SCH (10:26)
[2017-01-31] MEDS: RILUZOLE 50 MG TAB PO SCH ×2 (10:26→21:11)
[2017-01-31] MEDS: ENOXAPARIN SOD 40 MG/0.4 ML SYRINGE SC SCH (10:26)
[2017-01-31] MEDS: FLUCONAZOLE 100MG/50ML 50 ML IV SCH (10:27)
[2017-02-01] VITALS (10 sets, daily range): BP systolic 118–140; BP diastolic 49–86
[2017-02-01] MEDS: ACETYLCYSTEINE 20%(200MG/ML) SOL 4ML NEB SCH ×4 (01:00→18:44)
[2017-02-01] MEDS: ALBUTEROL SULF 2.5 MG/0.5ML(0.5%) NEB SOLN NEB SCH ×4 (01:00→18:44)
[2017-02-01] MEDS: IPRATROPIUM BROM 0.5 MG/2.5ML INH SOL NEB SCH ×4 (01:00→18:44)
[2017-02-01] MEDS: VANCOMYCIN 1GM/250ML D5W 250 ML IV SCH ×2 (04:00→16:14)
[2017-02-01 05:12] LABS: Anion Gap 7 (5-15); BUN/Creatinine Ratio 73.3; Blood Urea Nitrogen 11 mg/dL (7-18); Calcium 8.7 mg/dL (8.5-10.1); Carbon Dioxide 32 mmol/L (21-32); Chloride 100 mmol/L (98-107); GFR African American 960 mL/min; GFR Non-African American 794 mL/min; Glucose 92 mg/dL (74-106); Sodium 139 mmol/L (136-145)
[2017-02-01] MEDS: MEROPENEM 1GM IVPB 100 ML IV SCH ×3 (06:00→21:59)
[2017-02-01] MEDS: RILUZOLE 50 MG TAB PO SCH ×2 (09:28→21:57)
[2017-02-01] MEDS: PANTOPRAZOLE SODIUM 40 MG/10 ML VIAL IV SCH (09:28)
[2017-02-01] MEDS: TERBUTALINE SULFATE 5 MG TAB PO SCH (09:28)
[2017-02-01] MEDS: FLUCONAZOLE 100MG/50ML 50 ML IV SCH (09:28)
[2017-02-01] MEDS: PARoxetine 20 MG TAB PO SCH (09:28)
[2017-02-01] MEDS: ENOXAPARIN SOD 40 MG/0.4 ML SYRINGE SC SCH (09:28)
[2017-02-01] MEDS: MORPHINE SULF INJ 2 MG/ML SYRINGE 1ML IV PRN (17:00)
[2017-02-01] MEDS: fentaNYL 100MCG/HR 100 MCG/HR PAT TD SCH (17:00)
[2017-02-01] MEDS: SODIUM CHLORIDE 0.9% 1,000 ML IV SCH (21:45)
[2017-02-02] VITALS (8 sets, daily range): BP systolic 99–145; BP diastolic 56–91
[2017-02-02] MEDS: IPRATROPIUM BROM 0.5 MG/2.5ML INH SOL NEB SCH ×4 (01:02→18:22)
[2017-02-02] MEDS: MORPHINE SULF INJ 2 MG/ML SYRINGE 1ML IV PRN (01:03)
[2017-02-02] MEDS: ACETYLCYSTEINE 20%(200MG/ML) SOL 4ML NEB SCH ×4 (01:03→18:23)
[2017-02-02] MEDS: ALBUTEROL SULF 2.5 MG/0.5ML(0.5%) NEB SOLN NEB SCH ×4 (01:03→18:22)
[2017-02-02] MEDS: SODIUM CHLORIDE 0.9% 1,000 ML IV SCH ×2 (01:25→18:06)
[2017-02-02] MEDS: VANCOMYCIN 1GM/250ML D5W 250 ML IV SCH ×2 (04:25→15:58)
[2017-02-02] MEDS: MEROPENEM 1GM IVPB 100 ML IV SCH ×2 (06:25→14:03)
[2017-02-02] MEDS: TERBUTALINE SULFATE 5 MG TAB PO SCH (09:45)
[2017-02-02] MEDS: FLUCONAZOLE 100MG/50ML 50 ML IV SCH (09:45)
[2017-02-02] MEDS: PANTOPRAZOLE SODIUM 40 MG/10 ML VIAL IV SCH (09:45)
[2017-02-02] MEDS: ENOXAPARIN SOD 40 MG/0.4 ML SYRINGE SC SCH (09:46)
[2017-02-02] MEDS: PARoxetine 20 MG TAB PO SCH (09:46)
[2017-02-02] MEDS: RILUZOLE 50 MG TAB PO SCH (09:46)
[2017-02-02] MEDS: ALPRAZolam 0.5 MG TAB PO PRN (15:04)
== END 2017-02-02 19:51 | DRG 870 ==
LOC: EDBD 22:37 → ER 22:37 → TELE 22:38 → ICU WEST 01-21 08:25 → DOU IN ICU 01-21 16:50
PROVIDERS: ADMIT Nurse Practitioner; ATTEND Internal Medicine Cardiovascular Disease
PROC: 5A1955Z Respiratory Ventilation, Greater than 96 Consecutive Hours (ICD-10-PCS; principal; 2017-01-20)
DX: A41.9 Sepsis, unspecified organism (principal); J96.90 Respiratory failure, unspecified, unspecified whether with hypoxia or hypercapnia; J18.9 Pneumonia, unspecified organism; N39.0 Urinary tract infection, site not specified; Z99.11 Dependence on respirator [ventilator] status; G12.21 Amyotrophic lateral sclerosis; G90.8 Other disorders of autonomic nervous system; Z53.29 Procedure and treatment not carried out because of patient's decision for other reasons; B95.61 Methicillin susceptible Staphylococcus aureus infection as the cause of diseases classified elsewhere; R00.1 Bradycardia, unspecified; R65.20 Severe sepsis without septic shock; E87.6 Hypokalemia; Z91.19 Patient's noncompliance with other medical treatment and regimen; Z93.0 Tracheostomy status; Z80.6 Family history of leukemia; Z80.8 Family history of malignant neoplasm of other organs or systems; Z88.8 Allergy status to other drugs, medicaments and biological substances
CPT/HCPCS: 36415; 36600; 71010; 80048; 80053; 80202; 81001; 82805; 83605; 83735; 83880; 85007; 85025; 85027; 86141; 87040; 87070; 87077; 87081; 87086; 87186; 87205; 93005; 94002; 94003; 94640; 96361; 96365; 96367; 96368; 96375; 99291; C9113; J1450; J1956; J2185; J2543; J3480; J7060

== ENCOUNTER 2017-02-12 00:26 | Inpatient (IN) | payer MEDICARE, MEDICAID ==
[~2017-02-12] VITALS: Ht 172.7 cm; Wt 95.3 kg
[2017-02-12] VITALS (10 sets, daily range): BP systolic 112–146; BP diastolic 30–87
[~2017-02-12 00:26] MED LIST changes: -ALBUTEROL SULF 2.5 MG/0.5ML(0.5%) NEB SOLN ONE; -HYDR2TAB27 PO; +HYDR2TAB29 PO
[2017-02-12] MEDS ORDERED: ALBUTEROL SULF 2.5 MG/0.5ML(0.5%) NEB SOLN NEB ONE (00:45)
[2017-02-12] MEDS ORDERED: IPRATROPIUM BROM 0.5 MG/2.5ML INH SOL NEB ONE (00:45)
[2017-02-12] MEDS ORDERED: methylPREDNISolone SOD SUCC 125 MG/2 ML VL ONE (01:10)
[2017-02-12] MEDS ORDERED: cefTRIAXone 1GM/50ML D5W 50 ML IV ONE (01:15)
[2017-02-12] MEDS ORDERED: methylPREDNISolone SOD SUCC 125 MG/2 ML VL IV ONE ×2 (01:15)
[2017-02-12] MEDS ORDERED: SODIUM CHLORIDE 0.9% 1,000 ML IV ONE (01:15)
[2017-02-12] MEDS ORDERED: VANCOMYCIN 1GM/250ML D5W 250 ML IV ONE (01:15)
[2017-02-12 01:21] LABS: DEFINITIVE VIEW TRANSMISSION; Hematocrit 37.4 % (41.0-53.0); Hemoglobin 12.1 g/dL (13.5-17.5); Mean Corpuscular Hemoglobin 26.3 pg (28.0-32.0); Mean Corpuscular Hgb Conc. 32.5 g/dL (32.0-36.0); Mean Corpuscular Volume 80.9 fL (80.0-100.0); Mean Platelet Volume 9.5 fL (7.4-10.4); Platelet Count (auto) 317 10^3/uL (140-450); Red Cell Distribution Width 15.5 % (11.6-16.0); SUSPECT VIEW TRANSMISSION; White Blood Cell 25.1 10^3/uL (4.4-10.8)
[2017-02-12 01:30] LABS: Metamyelocytes % 0; Myelocytes % 0; Promyelocytes % 0; Reactive Lymphocytes 0
[2017-02-12 01:34] LABS: INR 1.1 (0.9-1.15); Partial Thromboplastin Time 29.8 sec (22.64-33.71)
[2017-02-12 01:41] LABS: Albumin 3.2 g/dL (3.4-5.0); Anion Gap 10 (5-15); Aspartate Aminotransferase 27 U/L (15-37); Blood Urea Nitrogen 9 mg/dL (7-18); Carbon Dioxide 27 mmol/L (21-32); Chloride 105 mmol/L (98-107); GFR African American 533 mL/min; GFR Non-African American 440 mL/min; Glucose 149 mg/dL (74-106); Magnesium 1.7 mg/dL (1.6-2.6); Potassium 3.9 mmol/L (3.5-5.1); Sodium 142 mmol/L (136-145)
[2017-02-12 01:49] LABS: Platelet Estimate Adequate; RBC Morphology Normal
[2017-02-12 01:52] LABS: Alkaline Phosphatase 110 U/L (45-117); Bilirubin, Total 0.4 mg/dL (0.2-1.0); Total Protein 7.6 g/dL (6.4-8.2)
[2017-02-12 02:37] LABS: Allen Test Yes; Base Excess 1.9 mmol/L (-2.0-2.0); Blood 02Sat 98.7 % (96-100); Blood COHb 0.5 % (0.5-1.5); HHb 1.3 % (0.0-5.0); MODE VENT - A/C; O2Hb 98.2 % (94.0-97.0); PCO2 50.8 mmHg (35.0-45.0); PCO2(T) 50.8 mmHg (35.0-45.0); PIP 26; PO2 249.6 mmHg (80.0-100.0); PO2(T) 249.6 mmHg (80.0-100.0); Sample Type Arterial; pH 7.359 (7.350-7.450)
[2017-02-12] MEDS ORDERED: MORPHINE SULF INJ 2 MG/ML SYRINGE 1ML IV PRN (07:15)
[2017-02-12] MEDS ORDERED: NITROGLYCERIN 0.4 MG SL TAB SL PRN (07:15)
[2017-02-12] MEDS ORDERED: ACETAMINOPHEN 325 MG TAB PO PRN (07:15)
[2017-02-12] MEDS ORDERED: DOCUSATE SOD 100 MG CAP PO PRN (07:15)
[2017-02-12] MEDS ORDERED: TEMAZEPAM 15 MG CAP PO PRN (07:15)
[2017-02-12] MEDS ORDERED: ONDANSETRON HCL 4 MG/2 ML VIAL IV PRN (07:15)
[2017-02-12 08:23] LABS: Urine Bilirubin Negative (Negative); Urine Blood Negative /uL (Negative); Urine Color Yellow (Yellow); Urine Glucose TRACE mg/dL (Normal); Urine Ketone TRACE (Negative); Urine Mucus FEW (None Seen); Urine Nitrite Negative (Negative); Urine RBC 2 /hpf (0 - 3); Urine Squamous Epithelial Cell FEW /hpf (<5); Urine Urobilinogen Normal (Negative); Urine pH 5.5 (5.0-8.0)
[2017-02-12] MEDS: PIPERACILLIN-TAZOB 3.375GM 100 ML IV SCH ×4 (09:20→23:10)
[2017-02-12] MEDS: SODIUM CHLORIDE 0.9% 1,000 ML IV SCH ×2 (09:20→21:58)
[2017-02-12] MEDS: VANCOMYCIN 750 MG in D5W 5% 250 ML IV SCH ×2 (10:30→18:18)
[2017-02-12] MEDS: ACETYLCYSTEINE 10 %(100MG/ML) SOL 4ML NEB SCH ×4 (11:00→22:17)
[2017-02-12] MEDS: ALBUTEROL SULF 2.5 MG/0.5ML(0.5%) NEB SOLN NEB PRN ×4 (11:00→22:18)
[2017-02-12] MEDS: IPRATROPIUM BROM 0.5 MG/2.5ML INH SOL NEB PRN ×4 (11:00→22:18)
[2017-02-12] MEDS: ENOXAPARIN SOD 40 MG/0.4 ML SYRINGE SC SCH (11:55)
[2017-02-12] MEDS: FAMOTIDINE 20 MG TAB PO SCH ×2 (11:55→21:58)
[2017-02-12] MEDS: methylPREDNISolone SOD SUCC 125 MG/2 ML VL IV SCH ×2 (11:55→23:10)
[2017-02-12] MEDS ORDERED: VANCOMYCIN PER PHARMACY 0 MG IV SCH (13:00)
[2017-02-12] MEDS ORDERED: MOMLQ GT (16:23)
[2017-02-12] MEDS ORDERED: DEXL60CA3 PO (16:23)
[2017-02-12] MEDS ORDERED: AMOX-263 PO (16:23)
[2017-02-12] MEDS ORDERED: HYDR4TAB2 PO (16:23)
[2017-02-12] MEDS ORDERED: ENO30SY SC (16:23)
[2017-02-12] MEDS ORDERED: ACE30IS IN (16:23)
[2017-02-12] MEDS ORDERED: IPRIH INH (16:23)
[2017-02-12] MEDS ORDERED: ALBUAER3 IN (16:23)
[2017-02-12] MEDS: RILUZOLE 50 MG TAB PO SCH (22:35)
[2017-02-12] MEDS: MORPHINE SULF INJ 2 MG/ML SYRINGE 1ML IV PRN (23:11)
[2017-02-12] MEDS: HYDROcodone-ACET 5/325MG TAB PO PRN (23:45)
[2017-02-13] VITALS (7 sets, daily range): BP systolic 124–152; BP diastolic 48–127
[2017-02-13] MEDS: VANCOMYCIN 750 MG in D5W 5% 250 ML IV SCH ×2 (02:22→10:37)
[2017-02-13] MEDS: ALBUTEROL SULF 2.5 MG/0.5ML(0.5%) NEB SOLN NEB PRN ×6 (02:56→23:21)
[2017-02-13] MEDS: ACETYLCYSTEINE 10 %(100MG/ML) SOL 4ML NEB SCH ×6 (02:57→22:14)
[2017-02-13] MEDS: IPRATROPIUM BROM 0.5 MG/2.5ML INH SOL NEB PRN ×6 (02:57→23:21)
[2017-02-13 03:56] LABS: DEFINITIVE VIEW TRANSMISSION; Hematocrit 28.5 % (41.0-53.0); Hemoglobin 9.4 g/dL (13.5-17.5); Mean Corpuscular Hemoglobin 26.8 pg (28.0-32.0); Mean Corpuscular Volume 81.3 fL (80.0-100.0); Mean Platelet Volume 9.3 fL (7.4-10.4); Platelet Count (auto) 284 10^3/uL (140-450); Red Cell Distribution Width 16.7 % (11.6-16.0); SUSPECT VIEW TRANSMISSION; White Blood Cell 20.3 10^3/uL (4.4-10.8)
[2017-02-13 04:01] LABS: Metamyelocytes % 0; Myelocytes % 0; Promyelocytes % 0; Reactive Lymphocytes 0
[2017-02-13 04:18] LABS: Albumin 2.8 g/dL (3.4-5.0); BUN/Creatinine Ratio 57.1; Bilirubin, Total 0.4 mg/dL (0.2-1.0); Calcium 8.7 mg/dL (8.5-10.1); Potassium 3.1 mmol/L (3.5-5.1); Total Protein 6.7 g/dL (6.4-8.2)
[2017-02-13 04:37] LABS: Large Platelets FEW
[2017-02-13 04:38] LABS: Platelet Estimate Adequa; RBC Morphology Normal
[2017-02-13] MEDS: PIPERACILLIN-TAZOB 3.375GM 100 ML IV SCH ×3 (05:55→18:31)
[2017-02-13] MEDS: ENOXAPARIN SOD 40 MG/0.4 ML SYRINGE SC SCH (10:37)
[2017-02-13] MEDS: RILUZOLE 50 MG TAB PO SCH ×2 (10:37→21:50)
[2017-02-13] MEDS: FAMOTIDINE 20 MG TAB PO SCH ×2 (10:37→21:50)
[2017-02-13] MEDS: SODIUM CHLORIDE 0.9% 1,000 ML IV SCH (11:19)
[2017-02-13] MEDS: methylPREDNISolone SOD SUCC 125 MG/2 ML VL IV SCH (11:59)
[2017-02-13] MEDS: HYDROcodone-ACET 5/325MG TAB PO PRN (16:02)
[2017-02-13] MEDS ORDERED: DOPamine 1600MCG/ML 250 ML IV SCH (22:15)
[2017-02-14] VITALS (84 sets, daily range): BP systolic 111–166; BP diastolic 49–112
[2017-02-14] MEDS: POTASSIUM CHL 20MEQ/100ML 100 ML IV SCH ×2 (00:15→00:33)
[2017-02-14] MEDS: methylPREDNISolone SOD SUCC 125 MG/2 ML VL IV SCH ×2 (00:24→11:49)
[2017-02-14] MEDS: PIPERACILLIN-TAZOB 3.375GM 100 ML IV SCH ×5 (00:24→23:14)
[2017-02-14] MEDS: ACETYLCYSTEINE 10 %(100MG/ML) SOL 4ML NEB SCH ×3 (02:25→10:05)
[2017-02-14] MEDS: IPRATROPIUM BROM 0.5 MG/2.5ML INH SOL NEB PRN ×5 (02:34→22:38)
[2017-02-14] MEDS: ALBUTEROL SULF 2.5 MG/0.5ML(0.5%) NEB SOLN NEB PRN ×5 (02:34→22:38)
[2017-02-14 03:47] LABS: DEFINITIVE VIEW TRANSMISSION; Hematocrit 34.7 % (41.0-53.0); Hemoglobin 11.3 g/dL (13.5-17.5); Mean Corpuscular Hemoglobin 26.6 pg (28.0-32.0); Mean Corpuscular Hgb Conc. 32.6 g/dL (32.0-36.0); Mean Corpuscular Volume 81.5 fL (80.0-100.0); Mean Platelet Volume 9.6 fL (7.4-10.4); Platelet Count (auto) 378 10^3/uL (140-450); Red Cell Distribution Width 17.1 % (11.6-16.0); SUSPECT VIEW TRANSMISSION; White Blood Cell 23.7 10^3/uL (4.4-10.8)
[2017-02-14 03:51] LABS: Metamyelocytes % 0; Myelocytes % 0; Promyelocytes % 0; Reactive Lymphocytes 0
[2017-02-14 04:11] LABS: Albumin 3.1 g/dL (3.4-5.0); Calcium 9.3 mg/dL (8.5-10.1); Magnesium 2.1 mg/dL (1.6-2.6); Potassium 3.5 mmol/L (3.5-5.1)
[2017-02-14 04:14] LABS: BUN/Creatinine Ratio 42.9
[2017-02-14 04:15] LABS: Platelet Estimate Adequate
[2017-02-14 04:16] LABS: Large Platelets FEW; RBC Morphology Normal
[2017-02-14 04:18] LABS: Bilirubin, Total 0.5 mg/dL (0.2-1.0)
[2017-02-14] MEDS: SODIUM CHLORIDE 0.9% 1,000 ML IV SCH ×2 (05:30→16:13)
[2017-02-14] MEDS: VANCOMYCIN 1GM/250ML D5W 250 ML IV SCH ×2 (10:27→22:00)
[2017-02-14] MEDS: ENOXAPARIN SOD 40 MG/0.4 ML SYRINGE SC SCH (10:27)
[2017-02-14] MEDS: RILUZOLE 50 MG TAB PO SCH ×2 (10:27→20:51)
[2017-02-14] MEDS: FAMOTIDINE 20 MG TAB PO SCH ×2 (10:27→20:51)
[2017-02-14] MEDS: TERBUTALINE SULFATE 5 MG TAB PO SCH (14:40)
[2017-02-14] MEDS: THEOPHYLLINE 80 MG/15ml ORAL Elixir PO SCH (14:40)
[2017-02-14] MEDS: ACETYLCYSTEINE 20%(200MG/ML) SOL 4ML NEB SCH (22:38)
[2017-02-14] MEDS: MORPHINE SULF INJ 2 MG/ML SYRINGE 1ML IV PRN (23:08)
[2017-02-15] VITALS (56 sets, daily range): BP systolic 126–163; BP diastolic 67–99
[2017-02-15] MEDS: methylPREDNISolone SOD SUCC 125 MG/2 ML VL IV SCH
[2017-02-15] MEDS: MORPHINE SULF INJ 2 MG/ML SYRINGE 1ML IV PRN (02:32)
[2017-02-15] MEDS: PIPERACILLIN-TAZOB 3.375GM 100 ML IV SCH (05:01)
[2017-02-15] MEDS: SODIUM CHLORIDE 0.9% 1,000 ML IV SCH (06:31)
[2017-02-15] MEDS: ALBUTEROL SULF 2.5 MG/0.5ML(0.5%) NEB SOLN NEB PRN ×3 (06:32→22:39)
[2017-02-15] MEDS: IPRATROPIUM BROM 0.5 MG/2.5ML INH SOL NEB PRN ×3 (06:32→22:39)
[2017-02-15] MEDS: ACETYLCYSTEINE 20%(200MG/ML) SOL 4ML NEB SCH ×3 (06:32→22:39)
[2017-02-15] MEDS: VANCOMYCIN 1GM/250ML D5W 250 ML IV SCH (09:42)
[2017-02-15] MEDS: RILUZOLE 50 MG TAB PO SCH ×2 (09:42→21:56)
[2017-02-15] MEDS: FAMOTIDINE 20 MG TAB PO SCH ×2 (09:42→21:08)
[2017-02-15] MEDS: ENOXAPARIN SOD 40 MG/0.4 ML SYRINGE SC SCH (09:44)
[2017-02-15] MEDS: THEOPHYLLINE 80 MG/15ml ORAL Elixir PO SCH (09:44)
[2017-02-15] MEDS: TERBUTALINE SULFATE 5 MG TAB PO SCH (10:00)
[2017-02-15] MEDS ORDERED: LACTULOSE 20Gm/30ML SOLN PO ONE (13:45)
[2017-02-15] MEDS ORDERED: FLEET ENEMA(ADULT) 135 ML PR ONE ×2 (13:57→14:00)
[2017-02-15] MEDS ORDERED: LEVOFLOXACIN 500 MG TAB PO ONE (14:00)
[2017-02-15] MEDS: CLINDAMYCIN HCL 150 MG CAP PO SCH ×2 (14:04→21:08)
[2017-02-15] MEDS: HYDROcodone-ACET 5/325MG TAB PO PRN (21:09)
[2017-02-16] VITALS (10 sets, daily range): BP systolic 112–145; BP diastolic 65–93
[2017-02-16] MEDS: CLINDAMYCIN HCL 150 MG CAP PO SCH ×2 (06:00→15:05)
[2017-02-16] MEDS: ALBUTEROL SULF 2.5 MG/0.5ML(0.5%) NEB SOLN NEB PRN ×4 (06:58→22:29)
[2017-02-16] MEDS: IPRATROPIUM BROM 0.5 MG/2.5ML INH SOL NEB PRN ×4 (06:58→22:29)
[2017-02-16] MEDS: ACETYLCYSTEINE 20%(200MG/ML) SOL 4ML NEB SCH ×3 (06:59→22:29)
[2017-02-16] MEDS: THEOPHYLLINE 80 MG/15ml ORAL Elixir PO SCH (09:39)
[2017-02-16] MEDS: TERBUTALINE SULFATE 5 MG TAB PO SCH (09:40)
[2017-02-16] MEDS: FAMOTIDINE 20 MG TAB PO SCH ×2 (09:40→21:03)
[2017-02-16] MEDS: RILUZOLE 50 MG TAB PO SCH ×2 (09:40→21:03)
[2017-02-16] MEDS: ENOXAPARIN SOD 40 MG/0.4 ML SYRINGE SC SCH (09:41)
[2017-02-16] MEDS ORDERED: LEVOFLOXACIN 500 MG TAB PO SCH (10:00)
[2017-02-16] MEDS: HYDROcodone-ACET 5/325MG TAB PO PRN ×2 (13:08→23:52)
[2017-02-16] MEDS ORDERED: ERTAPENEM SOD 1 GM INJ VIAL IM ONE ×2 (16:30→21:00)
[2017-02-17] VITALS (8 sets, daily range): BP systolic 99–133; BP diastolic 59–75
[2017-02-17] MEDS: ALBUTEROL SULF 2.5 MG/0.5ML(0.5%) NEB SOLN NEB PRN ×2 (05:49→23:42)
[2017-02-17] MEDS: ACETYLCYSTEINE 20%(200MG/ML) SOL 4ML NEB SCH ×2 (05:50→23:04)
[2017-02-17 09:18] LABS: Basophils # (auto) 0 uL; Basophils % (auto) 0.3 % (0.0-2.0); DEFINITIVE VIEW TRANSMISSION; Eosinophils # (auto) 0.4 uL; Eosinophils % (auto) 3.6 % (0.0-7.0); Hematocrit 35.1 % (41.0-53.0); Hemoglobin 11.7 g/dL (13.5-17.5); Lymphocytes # (auto) 2.3 uL; Lymphocytes % (auto) 19.4 % (10.0-50.0); Mean Corpuscular Hemoglobin 26.9 pg (28.0-32.0); Mean Corpuscular Hgb Conc. 33.3 g/dL (32.0-36.0); Mean Corpuscular Volume 80.7 fL (80.0-100.0); Mean Platelet Volume 9.3 fL (7.4-10.4); Monocytes # (auto) 1.1 uL; Monocytes % (auto) 9.2 % (0.0-12.0); Neutrophils # (auto) 8.1 uL; Neutrophils % (auto) 67.5 % (37.0-80.0); Platelet Count (auto) 360 10^3/uL (140-450); White Blood Cell 12.1 10^3/uL (4.4-10.8)
[2017-02-17 09:43] LABS: BUN/Creatinine Ratio 66.7; Bilirubin, Total 0.6 mg/dL (0.2-1.0); Calcium 8.8 mg/dL (8.5-10.1); Potassium 3.5 mmol/L (3.5-5.1); Total Protein 6.4 g/dL (6.4-8.2)
[2017-02-17] MEDS: THEOPHYLLINE 80 MG/15ml ORAL Elixir PO SCH (10:00)
[2017-02-17] MEDS ORDERED: ERTAPENEM SOD 1 GM INJ VIAL IM SCH (10:00)
[2017-02-17] MEDS: ENOXAPARIN SOD 40 MG/0.4 ML SYRINGE SC SCH (10:53)
[2017-02-17] MEDS: TERBUTALINE SULFATE 5 MG TAB PO SCH (10:55)
[2017-02-17] MEDS: RILUZOLE 50 MG TAB PO SCH ×2 (10:57→21:12)
[2017-02-17] MEDS: FAMOTIDINE 20 MG TAB PO SCH ×2 (10:57→21:12)
[2017-02-17] MEDS: ERTAPENEM 1GM IN NS 50 ML IV SCH (12:14)
[2017-02-17] MEDS: MORPHINE SULF INJ 2 MG/ML SYRINGE 1ML IV PRN ×3 (13:30→22:24)
[2017-02-17] MEDS: fentaNYL 100MCG/HR 100 MCG/HR PAT TD SCH (21:13)
[2017-02-17] MEDS: IPRATROPIUM BROM 0.5 MG/2.5ML INH SOL NEB PRN (23:42)
[2017-02-18] VITALS (9 sets, daily range): BP systolic 94–129; BP diastolic 55–76
[2017-02-18] MEDS: ACETYLCYSTEINE 20%(200MG/ML) SOL 4ML NEB SCH ×3 (05:50→22:06)
[2017-02-18] MEDS: IPRATROPIUM BROM 0.5 MG/2.5ML INH SOL NEB PRN ×3 (05:51→22:05)
[2017-02-18] MEDS: ALBUTEROL SULF 2.5 MG/0.5ML(0.5%) NEB SOLN NEB PRN ×3 (05:51→22:05)
[2017-02-18] MEDS: RILUZOLE 50 MG TAB PO SCH ×2 (09:32→21:09)
[2017-02-18] MEDS: ENOXAPARIN SOD 40 MG/0.4 ML SYRINGE SC SCH (09:32)
[2017-02-18] MEDS: TERBUTALINE SULFATE 5 MG TAB PO SCH (09:32)
[2017-02-18] MEDS: THEOPHYLLINE 80 MG/15ml ORAL Elixir PO SCH (09:32)
[2017-02-18] MEDS: ERTAPENEM 1GM IN NS 50 ML IV SCH (09:32)
[2017-02-18] MEDS: FAMOTIDINE 20 MG TAB PO SCH ×2 (09:33→21:09)
[2017-02-18] MEDS: MORPHINE SULF INJ 2 MG/ML SYRINGE 1ML IV PRN ×3 (10:03→19:45)
[2017-02-19] VITALS: BP 105/78
[2017-02-19 04:00] VITALS: BP 102/63
[2017-02-19 06:13] LABS: Basophils # (auto) 0 uL; Basophils % (auto) 0.1 % (0.0-2.0); DEFINITIVE VIEW TRANSMISSION; Eosinophils # (auto) 0.4 uL; Eosinophils % (auto) 2.8 % (0.0-7.0); Hematocrit 34.9 % (41.0-53.0); Hemoglobin 11.6 g/dL (13.5-17.5); Lymphocytes # (auto) 2.4 uL; Lymphocytes % (auto) 16.3 % (10.0-50.0); Mean Corpuscular Hemoglobin 26.6 pg (28.0-32.0); Mean Corpuscular Hgb Conc. 33.1 g/dL (32.0-36.0); Mean Corpuscular Volume 80.3 fL (80.0-100.0); Mean Platelet Volume 10.2 fL (7.4-10.4); Monocytes # (auto) 0.9 uL; Neutrophils # (auto) 11.2 uL; Neutrophils % (auto) 74.8 % (37.0-80.0); Platelet Count (auto) 358 10^3/uL (140-450); Red Cell Distribution Width 17.5 % (11.6-16.0)
[2017-02-19] MEDS: ALBUTEROL SULF 2.5 MG/0.5ML(0.5%) NEB SOLN NEB PRN ×3 (07:22→22:53)
[2017-02-19] MEDS: ACETYLCYSTEINE 20%(200MG/ML) SOL 4ML NEB SCH ×3 (07:22→22:53)
[2017-02-19] MEDS: IPRATROPIUM BROM 0.5 MG/2.5ML INH SOL NEB PRN ×2 (07:22→14:25)
[2017-02-19 08:00] VITALS: BP 106/66
[2017-02-19] MEDS: THEOPHYLLINE 80 MG/15ml ORAL Elixir PO SCH ×2 (10:00→10:12)
[2017-02-19] MEDS: HYDROcodone-ACET 5/325MG TAB PO PRN ×2 (10:11→22:20)
[2017-02-19] MEDS: TERBUTALINE SULFATE 5 MG TAB PO SCH (10:11)
[2017-02-19] MEDS: FAMOTIDINE 20 MG TAB PO SCH ×2 (10:11→20:56)
[2017-02-19] MEDS: RILUZOLE 50 MG TAB PO SCH ×2 (10:11→20:56)
[2017-02-19] MEDS: ERTAPENEM 1GM IN NS 50 ML IV SCH (10:12)
[2017-02-19] MEDS: ENOXAPARIN SOD 40 MG/0.4 ML SYRINGE SC SCH (10:12)
[2017-02-19] MEDS: MORPHINE SULF INJ 2 MG/ML SYRINGE 1ML IV PRN ×3 (10:23→20:56)
[2017-02-19 11:52] VITALS: BP 99/55
[2017-02-19 15:57] VITALS: BP 116/72
[2017-02-19 20:00] VITALS: BP 116/85
[2017-02-20] VITALS (7 sets, daily range): BP systolic 103–113; BP diastolic 61–75
[2017-02-20] MEDS: IPRATROPIUM BROM 0.5 MG/2.5ML INH SOL NEB PRN ×2 (06:55→15:09)
[2017-02-20] MEDS: ALBUTEROL SULF 2.5 MG/0.5ML(0.5%) NEB SOLN NEB PRN ×2 (06:55→15:09)
[2017-02-20] MEDS: ACETYLCYSTEINE 20%(200MG/ML) SOL 4ML NEB SCH ×2 (06:56→15:09)
[2017-02-20] MEDS: THEOPHYLLINE 80 MG/15ml ORAL Elixir PO SCH (09:39)
[2017-02-20] MEDS: ERTAPENEM 1GM IN NS 50 ML IV SCH (09:40)
[2017-02-20] MEDS: TERBUTALINE SULFATE 5 MG TAB PO SCH (09:47)
[2017-02-20] MEDS: RILUZOLE 50 MG TAB PO SCH (09:47)
[2017-02-20] MEDS: FAMOTIDINE 20 MG TAB PO SCH (09:47)
[2017-02-20] MEDS: ENOXAPARIN SOD 40 MG/0.4 ML SYRINGE SC SCH (09:47)
[2017-02-20] MEDS: HYDROcodone-ACET 5/325MG TAB PO PRN ×3 (09:53→21:53)
[2017-02-20] MEDS: fentaNYL 100MCG/HR 100 MCG/HR PAT TD SCH (18:30)
== END 2017-02-20 22:25 | DRG 870 ==
LOC: ER 00:26 → EDBD 00:26 → TELE 00:27 → ICU WEST 02-13 00:28 → ICU CENTRL 02-15 15:01 → DOU IN ICU 02-15 17:36
PROVIDERS: ADMIT Nurse Practitioner; ATTEND Internal Medicine Cardiovascular Disease
PROC: 5A1955Z Respiratory Ventilation, Greater than 96 Consecutive Hours (ICD-10-PCS; principal; 2017-02-12)
DX: A41.9 Sepsis, unspecified organism (principal); J18.9 Pneumonia, unspecified organism; J96.90 Respiratory failure, unspecified, unspecified whether with hypoxia or hypercapnia; Z99.11 Dependence on respirator [ventilator] status; E87.2 Acidosis; J98.11 Atelectasis; G12.21 Amyotrophic lateral sclerosis; J95.03 Malfunction of tracheostomy stoma; R00.1 Bradycardia, unspecified; Z53.29 Procedure and treatment not carried out because of patient's decision for other reasons; R65.20 Severe sepsis without septic shock; Z91.19 Patient's noncompliance with other medical treatment and regimen; Z80.6 Family history of leukemia; Z80.8 Family history of malignant neoplasm of other organs or systems; Z88.8 Allergy status to other drugs, medicaments and biological substances
CPT/HCPCS: 36415; 36600; 71010; 80053; 80202; 81001; 82805; 83605; 83735; 84484; 85007; 85025; 85027; 85610; 85730; 87040; 87070; 87077; 87081; 87186; 87205; 93005; 94002; 94003; 94640; 94660; 96365; 96368; 96372; 96375; 99291; J0696; J1335; J2543; J3480; J7060